=== PATIENT | male | born 1990 | race Caucasian/White ===

== ENCOUNTER 2025-06-30 12:23 | Outpatient (AMB) | payer BC, SELFPAY ==
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
[2025-06-30 12:36] VITALS: BP 129/60; PULSE 69; RESP 16; TEMP 36.6; O2SAT 96; BMI 51.5
--- OUTSIDE RECORDS SUMMARY | 2025-06-30 13:40 | XMS_ITS | Clinical Summary ---
Author Organization [facility] [employer] [facility] lin Address [address] [place] [address] Care Team Providers Care Copy Preparer Name Role Phone Unavailable Primary Care Provider Unavailabl e Social History Tobacco Use Types Packs/Day Years Used Date Smoking Tobacco: Never Assessed Sex and Gender Information Value Date Recorded Sex Assigned at Not on file Legal Sex Male 2:31 PM EST Gender Identity Not on file Sexual Orientation Not on file Plan of Treatment Health Maintenance Due Date Last Done Comments Depression: Screening Annual ly using PHQ-2/9 in Adults 18 yrs or above (or HM Modifier)([facility]) 02/26/2010 Hepatitis C Virus Infection in Adolescents and Adults: Screening (or Modifier) ([facility]) 02/26/2010 SDOH Screening Reminder: Pratibha ually for all adults ([facility]) 02/26/2010 Tobacco Smoking Cessation: i n Adults excluding Women: Behavioral and Pharmacotherapy Interventions ([facility]) 02/26/2010 DTaP/Tdap/Td Vaccines ([facility]) (1 - Tdap) 02/26/2011 COVID-19 Vaccine Screening: Initial Series and Booster Status ([facility]) ( - 2023- season) 2024 Flu Vaccination: Yearly for ages 18mos through 64 years (or Modifier)([facility]) 06/12/2025 Zoster/Shingles Vaccine Seri es Screening: Adults aged 18+ yrs (or HM Modifiers)([facility]) (1 of 2) 02/26/2042 Pneumococcal Vaccination Scr eening: Pts 0-19 & 19-49 yrs of age ([facility]) Aged Out No longer eligible based on patient's age to complete this topic Medical Devices Not on file Insurance [facility]
--- OUTSIDE RECORDS SUMMARY | 2025-06-30 13:40 | XMS_ITS ---
[facility] Name [facility] Care Team Organization Name Specialty Phone Email Start Date End Da te [facility] Tommie Chowdary DO Primary Care 09/19/202206/12
== END 2025-06-30 13:05 | disposition home or self-care (01) ==
LOC: HO.HMCFM 12:23
PROVIDERS: PCP Nurse Practitioner Family; Visit Provider Nurse Practitioner Family
DX: Z00.00 Encounter for general adult medical examination without abnormal findings (principal); F41.9 Anxiety disorder, unspecified; E66.01 Morbid (severe) obesity due to excess calories; Z68.43 Body mass index [BMI] 50.0-59.9, adult; F32.A Depression, unspecified

== ENCOUNTER → 2025-06-30 12:23 | Outpatient (BNVA) | payer BC, SELFPAY | PROVIDERS: PCP Nurse Practitioner Family; Visit Provider Nurse Practitioner Family | DX: Z00.00 Encounter for general adult medical examination without abnormal findings (principal); F41.9 Anxiety disorder, unspecified; F32.A Depression, unspecified; E66.01 Morbid (severe) obesity due to excess calories; Z68.43 Body mass index [BMI] 50.0-59.9, adult | CPT/HCPCS: 96127 ==

== ENCOUNTER 2025-07-09 08:03 | Outpatient (REF) | payer BC, SELFPAY ==
--- OUTSIDE RECORDS SUMMARY | 2025-07-09 08:20 | XMS_ITS | Clinical Summary ---
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 Role Phone Unavailable Primary Care Provider [...] Adults 18 yrs or above (or HM Modifier)([facility]) 02/26/2010 Hepatitis C Virus Infection in Adolescents and Adults: Screening (or Modifier) ([facility]) 02/26/2010 SDOH Screening Reminder: Pratibha ually for all adults ([facility]) 02/26/2010 Tobacco Smoking Cessation: i n Adults excluding Women: Behavioral and Pharmacotherapy Interventions ([facility]) 02/26/2010 DTaP/Tdap/Td Vaccines ([facility]) (1 - Tdap) 02/26/2011 COVID-19 Vaccine Screening: Initial Series and Booster Status ([facility]) ( - 2023- season) 2024 Flu Vaccination: Yearly for ages 18mos through 64 years (or Modifier)([facility]) 06/12/2025 Zoster/Shingles Vaccine Seri es Screening: Adults aged 18+ yrs (or HM Modifiers)([facility]) (1 of 2) 02/26/2042 Pneumococcal Vaccination Scr eening: Pts 0-19 & 19-49 yrs of age ([facility]) Aged Out No longer eligible based on patient's age to complete this topic Medical Devices Not on file Insurance [facility]
[2025-07-09 11:27] LABS: MANUAL DIFF FLAG NO
[2025-07-09 11:38] LABS: Hematocrit 44.2 % (42.0-52.0); Hemoglobin 15.7 g/dl (14.0-18.0); Imm Gran Abs Auto 0.01 X10*3/uL (0.00-0.03); Imm Gran Pct Auto 0.2 % (0.0-0.4); Lymphocytes Absolute Auto 1.8 X10*3/uL (1.2-4.9); Mean Corpuscular HGB Conc 35.5 g/dl (31.0-36.0); Mean Corpuscular Hemoglobin 31.3 pg (27.0-33.0); Mean Corpuscular Volume 88.2 fL (80.0-98.0); NRBC Abs Auto 0.000 X10*3/uL (0.0-0.012); NRBC Pct Auto 0.0 /100WBC (0.0-0.2); Platelet Count 210 X10*3/uL (160-400); Red Blood Count 5.01 X10*6/uL (4.60-5.80); White Blood Count 6.1 X10*3/uL (4.8-10.8)
[2025-07-09 12:18] LABS: Alanine Aminotransferase 47 U/L (0-40); Albumin Level 4.7 g/dL (3.5-5.0); Alkaline Phosphatase 91 U/L (39-117); Anion Gap 10 (12-20); Aspartate Amino Transferase 35 U/L (5-37); Blood Urea Nitrogen 16 mg/dL (9-16); Calcium 9.2 mg/dL (8.4-10.2); Carbon Dioxide 29 mmol/L (22-29); Chloride 105 mmol/L (96-108); Cholesterol 109 mg/dL (<200); Estimated Glomerular Filt Rate > 60; HDL Cholesterol 37 mg/dL (>40); Potassium 3.9 mmol/L (3.3-5.1); Sodium 140 mmol/L (135-145); Total Protein 7.5 g/dL (6.5-8.0); Triglycerides 102 mg/dL (<150)
== END 2025-07-09 08:04 | disposition home or self-care (01) ==
LOC: HO.WFDLDS 08:03
PROVIDERS: Visit Provider Nurse Practitioner Family
DX: Z00.00 Encounter for general adult medical examination without abnormal findings (principal); Z13.6 Encounter for screening for cardiovascular disorders
CPT/HCPCS: 36415; 80053; 80061; 82306; 84443; 85025

== ENCOUNTER 2025-07-21 14:22 | Outpatient (AMB) | payer BC, SELFPAY ==
--- NOTE | 2025-07-21 14:10 | A.OFFPC_ITS ---
Intake Visit Reasons: Tele 2-4 wks labs review Intake Note: patient here for 2-4 wks Telehealth follow up for lab review Stage Builder Required: No Allergies No Known Allergies Allergy (Verified 07/21/25 14:10) Tobacco use date assessed: 07/21/25 Dental Screening Dental Screen Date: 06/30/25 Did you have a dental visit in the last 12 months?: Yes Did you have a dental problem in the last 6 months where you did not have access to dental care?: No Was dental information given to patient?: Patient has dentist HPI HPI Comments History of Present Illness Details 35-year-old [facility] of recent lab results. He admits to taking escitalopram as prescribed without adverse reactions. No acute symptoms at this time. [facility] Medical History (Updated 07/21/25 @ 14:28 by Herminio Chang CNP) Myopia of both eyes Sciatica Depression Anxiety Heart palpitations Family History (Updated 06/30/25 @ 12:45 by Jena Cochran MA) Mother FH: mental illness Substance abuse Diabetes Father Substance abuse FH: mental illness Skin cancer Maternal Grandmother Lymphoma Social History (Updated 06/30/25 @ 12:35 by Jena Cochran MA) Housing: Apartment Patient Tobacco Use Status: Never used Tobacco e-Cigarette/Vaping Use: Never Used Second Hand Smoke Exposure: No Substance Use Type: Marijuana service: No Current occupational status: employed 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 Current occupational exposures/hazards: Yes Cognitive needs: No Hearing needs: No Vision needs: Yes Questionnaire Thrive Questionnaire Date Thrive assessed: 06/27/25 I am a: Patient What is your living situation today?: I have a steady place to live Within the past 12 months, did the food you bought not last and you didn't have the money to get more?: Never true Within the past 12 months, did you worry whether your food would run out before you got money to buy more?: Never true Do you have trouble paying for medicines?: No Do you have trouble getting transportation to medical appointments?: No Do you have trouble paying your heating and electricity bill?: No Do you have trouble taking care of your child, family member or friend?: No Do you have trouble with day-to-day activities such as bathing, preparing meals, shopping, managing finances, etc.?: No Are you currently unemployed and looking for a job?: No Are you interested in more education?: No Please select the resources that you would like help with: None THRIVE Score: 0 AUDIT C Alcohol Use Questionnaire (AUDIT-C) 2. How many drinks containing alcohol do you have on a typical day when you are drinking?: 1 or 2 Total Score: 0 HEATHER-7 AMB Questionnaire HEATHER-7 Date HEATHER - 7 assessed: 06/30/25 Source: Developed by Drs. Raymond Rubio, Zari Abdul, Aki Mcdaniels and colleagues, with an educational paula from [employer]. Review of Systems Const Details: Denies chills, Denies fatigue, Denies fever(s), Denies headache(s) and Denies weakness Cardiac Denies chest pain, Denies claudication, Denies leg edema, Denies lighthead edness, Denies palpitations, Denies dyspnea, Denies dyspnea on exertion, Denies orthopnea and Denies other (Loss of consciousness) Resp Denies cough, Denies excessive phlegm production, Denies dyspnea, Denies dyspnea on exertion, Denies snoring and Denies wheezing Physical exam (Primary Care) Tobacco/Smoking Status: Tobacco use Status Tobacco use date assessed 07/21/25 07/21/25 14:11 Patient Tobacco Use Status Never used Tobacco 07/21/25 14:11 e-Cigarette/Vaping Use Never Used 07/21/25 14:11 Thrive Assessment: Date of Thrive Assessment Date Thrive assessed 06/27/25 07/21/25 14:11 Const Other: Patient is alert and oriented x3 Telehealth Telehealth Telehealth Platform: Telephone Location of provider rendering services: practice address Location of patient: address on file Patient Identification confirmed using: Name, : Yes Telehealth method: voice only Patient verbally consented to treatment: Yes Patient verbally consented to billing insurance company: Yes Patient informed of any privacy concerns related to visit: Yes Coding Level of Care Code Tele Est Pt Level 3 (63990) Diagnoses Elevated ALT measurement R74.01 Low HDL (under 40) E78.6 Time Spent (min) 15 Assessment & Plan Assessment & Plan (1) Elevated ALT measurement: Code(s): R74.01 - Elevation of levels of liver transaminase levels Category: Medical Plan: Recent ALT level is slightly elevated, 47. Healthy diet/weight management encouraged. Will monitor liver panel periodically. Encouraged to perform urine microalbumin and urinalysis before next visit. Follow-up for anxiety and depression in 2 months. Return sooner with symptoms or concerns. Verbalized understanding and agreed with the plan. (2) Low HDL (under 40): Code(s): E78.6 - Lipoprotein deficiency Category: Medical Plan: Recent HDL is slightly low, 37, triglyceride, total cholesterol, and LDL levels are normal. Advised to limit foods high in saturated fat and avoid foods high in trans fat. Routine exercise encouraged. Will monitor lipid panel level periodically. Verbalized understanding and agreed with the plan.
--- OUTSIDE RECORDS SUMMARY | 2025-07-21 16:56 | XMS_ITS | Clinical Summary ---
Author Organization [facility] [employer] [facility] lin Address [address] [facility] [place] [address] Care Team Providers Care Audit Director Name Role Phone Unavailable Primary Care Provider [...] Adults 18 yrs or above (or HM Modifier)([facility]) 02/26/2010 Hepatitis C Virus Infection in Adolescents and Adults: Screening (or Modifier) ([facility]) 02/26/2010 SDOH Screening Reminder: Pratibha ually for all adults ([facility]) 02/26/2010 Tobacco Smoking Cessation: i n Adults excluding Women: Behavioral and Pharmacotherapy Interventions ([facility]) 02/26/2010 DTaP/Tdap/Td Vaccines ([facility]) (1 - Tdap) 02/26/2011 COVID-19 Vaccine Screening: Initial Series and Booster Status ([facility]) ( - 2023- season) 2024 Flu Vaccination: Yearly for ages 18mos through 64 years (or Modifier)([facility]) 06/12/2025 Zoster/Shingles Vaccine Seri es Screening: Adults aged 18+ yrs (or HM Modifiers)([facility]) (1 of 2) 02/26/2042 Pneumococcal Vaccination Scr eening: Pts 0-19 & 19-49 yrs of age ([facility]) Aged Out No longer eligible based on patient's age to complete this topic Medical Devices Not on file Insurance [facility]
== END 2025-07-21 15:40 | disposition home or self-care (01) ==
LOC: HO.HMCFM 14:22
PROVIDERS: PCP Nurse Practitioner Family; Visit Provider Nurse Practitioner Family
DX: R74.01 Elevation of levels of liver transaminase levels (principal); E78.6 Lipoprotein deficiency

== ENCOUNTER 2025-10-06 09:46 | Outpatient (REF) | payer BC, SELFPAY ==
--- OUTSIDE RECORDS SUMMARY | 2025-10-06 11:26 | XMS_ITS | Clinical Summary ---
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
[2025-10-06 11:34] LABS: Appearance Urine Clear; Glucose Urine UA Negative (Negative); PH 6.0 (5.0-9.0); Specific Gravity - Urine 1.025 (1.005-1.025)
[2025-10-06 12:04] LABS: Microalbum/Creatinine Ratio Ur 3.8 ug/mg cr (<30)
== END 2025-10-06 09:47 | disposition home or self-care (01) ==
LOC: HO.WFDLDS 09:46
PROVIDERS: Visit Provider Nurse Practitioner Family
DX: Z00.00 Encounter for general adult medical examination without abnormal findings (principal)
CPT/HCPCS: 81003; 82043; 82570

== ENCOUNTER 2025-10-19 15:14 | Outpatient (AMB) | payer BC, SELFPAY ==
--- NOTE | 2025-10-19 14:07 | MHC.PC.OV ---
Intake Visit Reasons: 2 mos anxiety, depression, urine labs Intake Note: patient here for 2 month Telehealth follow up for anxiety, depression and urine labs Health Promoter Required: No Allergies No Known Allergies Allergy (Verified 10/19/25 14:08) Tobacco use date assessed: 10/19/25 Dental Screening Dental Screen Date: 10/19/25 Did you have a dental visit in the last 12 months?: Yes Did you have a dental problem in the last 6 months where you did not have access to dental care?: No Was dental information given to patient?: Patient has dentist HPI HPI Comments History of Present Illness Details 35-year-old male presents for a telehealth visit for anxiety and depression follow-up. He notes that his anxiety and depressive symptoms and generally well controlled. He offers no complaints and denies acute symptoms at this time. [facility] Medical History (Updated 07/21/25 @ 14:28 by Herminio Chang CNP) Myopia of both eyes Sciatica Depression Anxiety Heart palpitations Family History (Updated 06/30/25 @ 12:45 by VALENTIN Cunningham) Mother FH: mental illness Substance abuse Diabetes Father Substance abuse FH: mental illness Skin cancer Maternal Grandmother Lymphoma Social History (Updated 06/30/25 @ 12:35 by VALENTIN Cunningham) Housing: Apartment Patient Tobacco Use Status: Never used Tobacco e-Cigarette/Vaping Use: Never Used Second Hand Smoke Exposure: No Substance Use Type: Marijuana service: No Current occupational status: employed Current occupation: [employer] Current occupational exposures/hazards: Yes Cognitive needs: No Hearing needs: No Vision needs: Yes Questionnaire PHQ-9 Over the last 2 weeks, how often have you been bothered by any of the following problems? 1. Little interest or pleasure in doing things: not at all 2. Feeling down, depressed, or hopeless: not at all 3. Trouble falling or staying asleep, or sleeping too much: not at all 4. Feeling tired or having little energy: not at all 5. Poor appetite or overeating: not at all 6. Feeling bad about yourself - or that you are a failure or have let yourself or your family down: not at all 7. Trouble concentrating on things, such as reading the newspaper or watching television: not at all 8. Moving or speaking so slowly that other people could have noticed. Or the opposite - being so fidgety or restless that you have been moving around a lot more than usual: not at all 9. Thoughts that you would be better off or of hurting yourself in some way: not at all Total score: 0 Depression Screening Interpretation: Negative Depression Screening Done: Yes 02237 - PHQ-9 Billing: Yes Source: Developed by Drs. Raymond Rubio, Aki Chaudhari and colleagues, with an educational paula from [employer]. Thrive Questionnaire Date Thrive assessed: 06/27/25 HEATHER-7 AMB Questionnaire HEATHER-7 Date HEATHER - 7 assessed: 10/19/25 Feeling nervous, anxious, or on edge: 0 = Not at all Not being able to stop or control worryin = Not at all Worrying too much about different things: 0 = Not at all Trouble relaxin = Not at all Being so restless that it is hard to sit still: 0 = Not at all Becoming easily annoyed or irritable: 0 = Not at all Feeling afraid as if something awful might happen: 0 = Not at all Total HEATHER-7 score (0-4 normal; 5-9 mild; 10-14 moderate; 15-21 severe): 0 Source: Developed by Drs. Raymond Rubio, Zari Abdul, Aki Mcdaniels and colleagues, with an educational paula from [employer]. HEATHER-7 Assessment Billing HEATHER-7 Assessment Tool: HEATHER-7 Assessment 17763 Review of Systems Const Details: Denies chills, Denies fatigue, Denies fever(s), Denies headache(s) and Denies weakness Cardiac Denies chest pain, Denies claudication, Denies leg edema, Denies lightheadedness, Denies palpitations, Denies dyspnea, Denies dyspnea on exertion, Denies orthopnea and Denies other (Loss of consciousness) Resp Denies cough, Denies excessive phlegm production, Denies dyspnea, Denies dyspnea on exertion, Denies snoring and Denies wheezing Physical exam (Primary Care) Tobacco/Smoking Status: Tobacco use Status Tobacco use date assessed 10/19/25 10/19/25 14:10 Patient Tobacco Use Status Never used Tobacco 10/19/25 14:10 e-Cigarette/Vaping Use Never Used 10/19/25 14:10 PHQ-9: PHQ-9 Score PHQ-9: Total score 0 10/19/25 14:11 Depression Screening Interpretation: Negative Thrive Assessment: Date of Thrive Assessment Date Thrive assessed 06/27/25 10/19/25 14:10 Const Other: Psych Attitude: cooperative Thought process: Normal thought process present Patient is alert and oriented x4 Telehealth Telehealth Telehealth Platform: Telephone Location of provider rendering services: practice address Location of patient: address on file Patient Identification confirmed using: Name, : Yes Telehealth method: voice only Patient verbally consented to treatment: Yes Patient verbally consented to billing insurance company: Yes Patient informed of any privacy concerns related to visit: Yes Coding Level of Care Code Tele Est Pt Level 3 (54780) Diagnoses Anxiety F41.9 Depression F32.A Additional Codes HEATHER-7 Assessment Billing - HEATHER-7 Assessment Tool: HEATHER-7 Assessment 21578 ([id number]) PHQ-9 - 74567 - PHQ-9 Billing: Yes ([id number]) Time Spent (min) 10 Assessment & Plan Assessment & Plan (1) Anxiety: Code(s): F41.9 - Anxiety disorder, unspecified Category: Medical Plan: Reports controlled anxiety and depressive symptoms. PHQ-9 and HEATHER-7 scores are normal. Continue current treatment regimen. Follow-up in 2 months for transfer of care with a new provider within the practice. Return sooner with symptoms or concerns. Verbalized understanding and agreed with the plan. (2) Depression: Code(s): F32.A - Depression, unspecified Category: Medical Plan: Plan as above
== END 2025-10-19 15:31 | disposition home or self-care (01) ==
LOC: HO.HMCFM 15:14
PROVIDERS: PCP Nurse Practitioner Family; Visit Provider Nurse Practitioner Family
DX: F41.9 Anxiety disorder, unspecified (principal); F32.A Depression, unspecified

== ENCOUNTER → 2025-10-19 15:14 | Outpatient (BNVA) | payer BC, SELFPAY | PROVIDERS: PCP Nurse Practitioner Family; Visit Provider Nurse Practitioner Family | DX: F41.9 Anxiety disorder, unspecified (principal) | CPT/HCPCS: 96127 ==